=== PATIENT | male | born 1975 | race Caucasian/White ===

== ENCOUNTER 2017-11-15 06:54 | Emergency (ER) | payer OTHER ==
[~2017-11-15] VITALS: Ht 175.3 cm; Wt 79.4 kg
[2017-11-15 07:12] VITALS: BP 121/92
[2017-11-15] MEDS ORDERED: LISINOPRIL10 MG PO (07:16)
[2017-11-15] MEDS ORDERED: PRILOSEC OTC20 MG PO (07:17)
[2017-11-15] MEDS ORDERED: NORCO 5-325 TA1 EACH PO (07:23)
[2017-11-15] MEDS ORDERED: FLEXERIL PO (07:23)
== END 2017-11-15 07:27 | disposition home or self-care (01) ==
LOC: M.ERS 06:54
DX: M43.6 Torticollis (principal); I10 Essential (primary) hypertension; K21.9 Gastro-esophageal reflux disease without esophagitis